=== PATIENT | female | born 1965 | race African-American/Black ===

== ENCOUNTER 2019-10-19 15:53 | Emergency (ER) | payer OTHER ==
[2019-10-19 16:17] LABS: ABS Lymphocytes 1.6 10^3/ul (1.0-4.8); ABS Monocytes 0.4 10^3/ul (0-0.8); Hematocrit 37 % (35-47); Hemoglobin 12.4 g/dL (12.0-16.0); Lymphocyte % 31.5 %; Mean Corpuscular HGB Conc 34 g/dL (31-36); Mean Corpuscular Hemoglobin 32 pg (27-31); Mean Corpuscular Volume 94 fL (80-97); Mean Platelet Volume 8.7 fL (7.4-10.4); Nucleated Red Blood Cells % 0.1; Platelet Count 259 10^3/uL (150-450); Red Cell Distribution Width 13 % (10-15)
[2019-10-19 16:21] LABS: INR 0.99 (0.82-1.09)
[2019-10-19 17:00] LABS: Albumin 4.4 g/dL (3.2-5.2); Albumin/Globulin Ratio 1.6 (1-3); BUN/Creatinine Ratio 17.1 (8-20); Calcium 9.4 mg/dL (8.6-10.3); EGFR African American 96.3 (>60); EGFR Non-African American 79.6 (>60); Globulin 2.7 g/dL (2-4); Potassium 3.5 mmol/L (3.5-5.0); Total Bilirubin 0.4 mg/dL (0.2-1.0); Total Protein 7.1 g/dL (6.4-8.9)
--- NOTE | 2019-10-19 17:54 | ED ---
HPI Chest Pain - HPI Summary HPI Summary: Patient is a 54 y/o F presenting to [facility] with chief complaint of left anterior chest pain. She states that she first experienced the pain around one week ago. Pain resolved but returned again yesterday. Patient states that the pain worsened overnight. She reports the chest pain radiates to her back. Deep breaths are noted to aggravate her chest pain. No recent cold Sx noted. SOB, abdominal pain, pain/swelling in legs are denied as well. No pain with palpation of chest area, but she notes that certain positions aggravate the pain. She denies recent injuries or abnormal heavy lifting. Hx of VA, heart failure, blood clots, diabetes, HTN are denied. However, Hx of asthma is noted. FMHx of cardiac disease is reported. She is a non-smoker. Patient has been treating the pain with OTC NSAIDs without relief in Sx. Home medications and allergies are reviewed. - History of Current Complaint Chief Complaint: EDChestPainROMI Time Seen by Provider: 10/19/19 17:44 Hx Obtained From: Patient Onset/Duration: Started Weeks Ago Timing: Intermittent Current Severity: Severe Pain Intensity: 7 Pain Scale Used: 0-10 Numeric Chest Pain Location: Left Anterior Chest Pain Radiates: Yes Chest Pain Radiates To:: Back Aggravating Factor(s): Position, Deep Breaths Associated Signs and Symptoms: Positive: Chest Pain. Negative: Shortness of Breath, Abdominal Pain, Calf Pain/Swelling, URI - Allergy/Home Medications Allergies/Adverse Reactions: Allergies Allergy/AdvReac Type Severity Reaction Status Date / Time No Known Allergies Allergy Verified 10/19/19 16:53 Home Medications: Home Medications Albuterol HFA INHALER* [Ventolin HFA Inhaler*] 2 puff INH Q6H PRN 10/19/19 [ History Confirmed 10/19/19] Furosemide 20 mg PO EVERY OTHER DAY 10/19/19 [History Confirmed 10/19/19] Potassium Chlor TAB* [Klor Con ER TAB*] 10 meq PO DAILY 10/19/19 [History Confirmed 10/19/19] PMH/Surg Hx/FS Hx/Imm Hx Endocrine/Hematology History: Denies: Hx Diabetes Cardiovascular History: Denies: Hx Congestive Heart Failure, Hx Embolism, Hx Hypertension, Hx Myocardial Infarction Respiratory History: Reports: Hx Asthma Infectious Disease History: No Infectious Disease History: Denies: Traveled Outside the [place] in Last 30 Days - Family History Known Family History: Positive: Cardiac Disease - Social History Alcohol Use: Rare Substance Use Type: Reports: None Smoking Status (MU): Never Smoked Tobacco Review of Systems ENT: Other - negative - cold Sx Positive: Chest Pain Negative: Abdominal Pain Negative: Myalgia - legs , Edema - legs All Other Systems Reviewed And Are Negative: Yes Physical Exam - Summary Physical Exam Summary: Constitutional: Well-developed, Well-nourished, Alert. (-) Distressed Skin: Warm, Dry HENT: Normocephalic; Atraumatic Eyes: Conjunctiva normal Neck: Musculoskeletal ROM normal neck. (-) JVD, (-) Stridor, (-) Tracheal deviation Cardio: Rhythm regular, rate normal, Heart sounds normal; Intact distal pulses; The pedal pulses are 2+ and symmetric. Radial pulses are 2+ and symmetric. (-) Murmur Pulmonary/Chest wall: Effort normal. (-) Respiratory distress, (-) Wheezes, (-) Rales Abd: Soft, (-) tenderness, (-) Distension, (-) Guarding, (-) Rebound Musculoskeletal: (-) Edema Lymph: (-) Cervical adenopathy Neuro: Alert, Oriented x3 Psych: Mood and affect Normal Triage Information Reviewed: Yes Vital Signs On Initial Exam: Initial Vitals Temp Pulse Resp BP Pulse Ox 98.1 F 74 16 181/87 98 10/19/19 16:05 10/19/19 16:05 10/19/19 16:05 10/19/19 16:05 10/19/19 16:05 Vital Signs Reviewed: Yes Procedures - Sedation Patient Received Moderate/Deep Sedation with Procedure: No Diagnostics - Vital Signs Vital Signs Temp Pulse Resp BP Pulse Ox 10/19/19 17:12 60 20 159/98 99 10/19/19 17:02 64 21 143/78 98 10/19/19 17:00 63 17 98 10/19/19 16:43 64 17 143/78 97 10/19/19 16:42 63 3 98 10/19/19 16:05 98.1 F 74 16 181/87 98 - Laboratory Lab Results: Lab Results 10/19/19 10/19/19 10/19/19 Range/Units 16:05 16:05 16:05 WBC 5.0 (3.5-10.8) 10^3/uL RBC 3.90 (3.70-4.87) 10^6 /uL Hgb 12.4 (12.0-16.0) g/dL Hct 37 (35-47) % MCV 94 (80-97) fL MCH 32 H (27-31) pg MCHC 34 (31-36) g/dL RDW 13 (10-15) % Plt Count 259 (150-450) 10^3/uL MPV 8.7 (7.4-10.4) fL Neut % (Auto) 59.1 % Lymph % (Auto) 31.5 % [place] % (Auto) 7.5 % Eos % (Auto) 1.0 % Baso % (Auto) 0.9 % Absolute Neuts (auto) 3.0 (1.5-7.7) 10^3/ul Absolute Lymphs (auto) 1.6 (1.0-4.8) 10^3/ul Absolute Monos (auto) 0.4 (0-0.8) 10^3/ul Absolute Eos (auto) 0.0 (0-0.6) 10^3/ul Absolute Basos (auto) 0.0 (0-0.2) 10^3/ul Absolute Nucleated RBC 0.0 10^3/ul Nucleated RBC % 0.1 INR (Anticoag Therapy) 0.99 (0.82-1.09) Sodium 140 (135-145) mmol/L Potassium 3.5 (3.5-5.0) mmol/L Chloride 106 (101-111) mmol/L Carbon Dioxide 24 (22-32) mmol/L Anion Gap 10 (2-11) mmol/L BUN 13 (6-24) mg/dL Creatinine 0.76 (0.51-0.95) mg/dL Est GFR ( Amer) 96.3 (>60) Est GFR (Non-Af Amer) 79.6 (>60) BUN/Creatinine Ratio 17.1 (8-20) Glucose 124 H (70-100) mg/dL Calcium 9.4 (8.6-10.3) mg/dL Total Bilirubin 0.40 (0.2-1.0) mg/dL AST 19 (13-39) U/L ALT 14 (7-52) U/L Alkaline Phosphatase 33 L (34-104) U/L Troponin I 0.00 (<0.03) ng/mL Total Protein 7.1 (6.4-8.9) g/dL Albumin 4.4 (3.2-5.2) g/dL Globulin 2.7 (2-4) g/dL Albumin/Globulin Ratio 1.6 (1-3) Result Diagrams: 10/19/19 16:05 10/19/19 16:05 Lab Statement: Any lab studies that have been ordered have been reviewed, and results considered in the medical decision making process. - Radiology CXR Radiology Interpretation Completed By: ED Physician Summary of Radiographic Findings: NO ACUTE DISEASE, PENDING OFFICIAL REPORT. - EKG 1556 Cardiac Rate: NL - rate of 69 BPM EKG Rhythm: Sinus Rhythm Summary of EKG Findings: EKG showed sinus rhythm with rate of 69 BPM, no ischemic changes. ED physician has reviewed and interpreted this EKG. Chest Pain Course/Dx - Course Course Of Treatment: Patient is a 54 y/o F presenting to [facility] with chief complaint of left anterior chest pain. She states that she first experienced the pain around one week ago. Pain resolved but returned again yesterday. Patient states that the pain worsened overnight. She reports the chest pain radiates to her back. Deep breaths are noted to aggravate her chest pain. No recent cold Sx noted. SOB, abdominal pain, pain/swelling in legs are denied as well. No pain with palpation of chest area, but she notes that certain positions aggravate the pain. She denies recent injuries or abnormal heavy lifting. Hx of VA, heart failure, blood clots, diabetes, HTN are denied. However , Hx of asthma is noted. FMHx of cardiac disease is reported. She is a non- smoker. Patient has been treating the pain with OTC NSAIDs without relief in Sx. Physical exam is unremarkable. EKG showed sinus rhythm with rate of 69 BPM, no ischemic changes. Bloodwork was obtained. First trop was negative. Other values were within normal limits with exception of MCH 32, glucose 124, alk phos 33. D-dimer was negative. CXR showed NAD. During ED course, patient received fluids and toradol 30 mg IV. - Diagnoses Provider Diagnoses: Atypical chest pain Discharge ED - Sign-Out/Discharge Documenting (check all that apply): Patient Departure - discharge - Discharge Plan Condition: Stable Disposition: HOME Patient Education Materials: Chest Pain (ED) Referrals: [facility] [Outside] - 3 Days Additional Instructions: PLEASE RETURN TO ED FOR ANY NEW OR WORSENING SYMPTOMS. PLEASE FOLLOW UP WITH YOUR PRIMARY CARE PHYSICIAN WITHIN THREE DAYS. - Billing Disposition and Condition Condition: STABLE Disposition: Home - Attestation Statements Document Initiated by Shanaeibdisha: Yes Documenting Scribe: IJEOMA STEIN Provider For Whom Alexis is Documenting (Include Credential): ZACHARY HICKS DO Scribdisha Attestation: IJEOMA Moyer scribed for ZACHARY HICKS DO on 10/21/19 at 1004. Scribe Documentation Reviewed: Yes Provider Attestation: The documentation as recorded by the IJEOMA ward accurately reflects the service I personally performed and the decisions made by ZACHARY mars DO Status of Scribdisha Document: Viewed
[2019-10-19] MEDS ORDERED: NS 0.9% 1000 ML** 1,000 ML IV ONE (17:56)
[2019-10-19] MEDS ORDERED: Ketorolac INJ* 30 MG/ML 1 ML VIAL IV PUSH ONE (17:56)
[2019-10-19] MEDS ORDERED: Cyclobenzaprine TAB* 10 MG PO ONE (19:55)
[2019-10-19] MEDS ORDERED: Cyclobenzaprine TAB* 10 MG ONE (19:56)
[2019-10-19 20:05] VITALS: BP 151/76
== END 2019-10-19 20:03 | disposition home or self-care (01) ==
LOC: ED 15:53
DX: R07.89 Other chest pain (principal); J45.909 Unspecified asthma, uncomplicated; Z79.51 Long term (current) use of inhaled steroids; Z82.49 Family history of ischemic heart disease and other diseases of the circulatory system
CPT/HCPCS: 36415; 71046; 80053; 84484; 85025; 85379; 85610; 93005; 96374; 99283; A9270-GY; J1885